=== PATIENT | male | born 1995 | race African-American/Black ===

== ENCOUNTER 2024-08-12 18:03 | Emergency (ER) | payer SELFPAY ==
[2024-08-12 18:33] LABS: APPEARANCE,URINE CLEAR; BILIRUBIN,URINE NEGATIVE (NEGATIVE); COLOR,URINE YELLOW; GLUCOSE,URINE NEGATIVE (NEGATIVE); KETONES,URINE TRACE mg/dL (NEGATIVE); LEUKOCYTE ESTERASE,URINE NEGATIVE (NEGATIVE); NITRITE,URINE NEGATIVE (NEGATIVE); OCCULT BLOOD,URINE NEGATIVE (NEGATIVE); PROTEIN,URINE NEGATIVE (NEGATIVE)
[2024-08-12] MEDS: cefTRIAXone 1 GM Vial IM ONE (19:53)
[2024-08-12] MEDS: Lidocaine 1% PF 2 ML SDV INJECT ONE (19:53)
[2024-08-12 20:02] LABS: C. TRACHOMATIS BY PCR NOT DETECTED; N. GONORRHOEAE BY PCR NOT DETECTED
== END 2024-08-12 20:49 | disposition home or self-care (01) ==
LOC: MW.ED 18:03
DX: R36.9 Urethral discharge, unspecified (principal); Z11.3 Encounter for screening for infections with a predominantly sexual mode of transmission; Z87.891 Personal history of nicotine dependence
CPT/HCPCS: 81003; 87491; 87591; 96372; 99283; J0696; J2003